=== PATIENT | male | born 1995 | race African-American/Black ===

== ENCOUNTER 2021-04-09 08:08 | Emergency (ER) | payer OTHER ==
[~2021-04-09] VITALS: Ht 180.3 cm; Wt 94.1 kg
[2021-04-09] MEDS ORDERED: OMNI-PAC300 MG PO (08:51)
[2021-04-09 10:00] VITALS: BP 137/91
== END 2021-04-09 10:00 | DRG 605 ==
LOC: ED 08:08
PROC: 0HQDXZZ Repair Right Lower Arm Skin, External Approach (ICD-10-PCS; principal; 2021-04-09)
PROC: 0HQBXZZ Repair Right Upper Arm Skin, External Approach (ICD-10-PCS; 2021-04-09)
PROC: 0HQ6XZZ Repair Back Skin, External Approach (ICD-10-PCS; 2021-04-09)
PROC: 0HQ1XZZ Repair Face Skin, External Approach (ICD-10-PCS; 2021-04-09)
DX: S41.011A Laceration without foreign body of right shoulder, initial encounter (principal); S21.211A Laceration without foreign body of right back wall of thorax without penetration into thoracic cavity, initial encounter; S01.112A Laceration without foreign body of left eyelid and periocular area, initial encounter; S51.811A Laceration without foreign body of right forearm, initial encounter; W26.9XXA Contact with unspecified sharp object(s), initial encounter; Y92.149 Unspecified place in prison as the place of occurrence of the external cause